=== PATIENT | female | born 1990 | race Caucasian/White ===

== ENCOUNTER 2017-03-11 22:44 | Emergency (ER) | payer SELFPAY ==
[~2017-03-11] VITALS: Ht 157.5 cm; Wt 61.2 kg
[2017-03-11] MEDS ORDERED: KEFLEX500 MG ORAL (23:13)
[2017-03-11] MEDS ORDERED: ACETAMINOPHEN-1 EAC1 ORAL (23:13)
[2017-03-11] MEDS ORDERED: Norco 5mg/325mg tab ORAL ONE (23:15)
[2017-03-11 23:24] VITALS: BP 113/73
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
== END 2017-03-11 23:25 ==
LOC: EMR 23:00
DX: S61.304A Unspecified open wound of right ring finger with damage to nail, initial encounter (principal); Y04.0XXA Assault by unarmed brawl or fight, initial encounter; Y92.89 Other specified places as the place of occurrence of the external cause
CPT/HCPCS: 99284